=== PATIENT | female | born 1995 | race Caucasian/White ===

== ENCOUNTER 2017-03-28 14:46 | Inpatient (IN) | payer BC, OTHER ==
[~2017-03-28] VITALS: Ht 177.8 cm; Wt 65.8 kg
[2017-03-28] MEDS ORDERED: THIAMINE HCL 200 MG/2 ML VIAL IM ONE (16:15)
[2017-03-28] MEDS ORDERED: diphenhydrAMINE 50 MG CAPSULE PO PRN (16:15)
[2017-03-28] MEDS ORDERED: MIRALAX 17 GM POWD.PACK PO PRN (16:15)
[2017-03-28] MEDS ORDERED: HYDROXYZINE PAMOATE 25 MG CAPSULE PO PRN (16:15)
[2017-03-28] MEDS ORDERED: ONDANSETRON 4 MG/2 ML VIAL IM PRN (16:15)
[2017-03-28] MEDS ORDERED: MAGNESIUM HYDROXIDE 30 ML LIQUID UDC PO PRN (16:15)
[2017-03-28] MEDS ORDERED: IBUPROFEN 400 MG TABLET PO PRN (16:15)
[2017-03-28] MEDS ORDERED: MAG HYDROX/AL HYDROX/SIMETH 30 ML LIQUID UDC PO PRN (16:15)
[2017-03-28] MEDS ORDERED: LORAZEPAM 1 MG TABLET PO PRN ×2 (16:15)
[2017-03-28] MEDS ORDERED: ONDANSETRON ODT 4 MG TAB.RAPDIS SL PRN (16:15)
[2017-03-28] MEDS ORDERED: LORAZEPAM 2 MG/1 ML VIAL IM PRN (16:15)
[2017-03-28] MEDS ORDERED: DICYCLOMINE HCL 20 MG TABLET PO PRN (16:15)
[2017-03-28] MEDS ORDERED: ACETAMINOPHEN 325 MG TABLET PO PRN (16:15)
[2017-03-28] MEDS ORDERED: LOPERAMIDE HCL 2 MG CAPSULE PO PRN ×2 (16:15)
[2017-03-28] MEDS ORDERED: CLONIDINE HCL 0.1 MG TABLET PO PRN (16:15)
--- NOTE | 2017-03-28 17:30 | NUR ---
ADMISSION NOTE Patient is 21 yr old female admitted at 14:40pm for supervised benzodiazepine withdrawal. Patient is alert and oriented X4, full code, allergic to sulfa drugs, and penicillin. On fall and seizure precaution, history of seizure 2014. Denies SOB, chest pain, skin is intact. Patient's skin is intact. Gait is steady and ambulates independently. Patient is able to respond to questions, cooperative during the admission interview. Denies suicidal or homicidal ideation at this time. Initial CIWA is 4. Complained of anxiety and lower back aches. Denies tremors, sweating or any hallucinations at this time. Patient was oriented to unit, room and call lights, oriented to unit routines and activity groups, and provided with hygiene supplies. Substance use history per patient report: 1) Meth - Patient started using at age 19 Patient was using 3gram/day for 5 days. Last use was 03/25/17. 2) Xanax - Patient started using at age 17. Patient was using 2 bars/day, Last use was 03/26/17 3) Marijuana - patient started using at age 16, using 5 grams/day, last use was today prior to admission to [facility]. Rehab history: 1) [facility] (01/02/15-07/02/15) and 02/07/16-06/24/2016 Addendum: 03/29/17 at 0721 by DAVID CLARK RN Patient arrived at 4:40pm not at 14:40pm.
[2017-03-28 17:44] LABS: *URINE HCG, QUAL NEGATIVE (NEGATIVE)
[2017-03-28] MEDS ORDERED: ALBU8HFA4 (17:49)
[2017-03-28] MEDS ORDERED: SUCR1TAB PO (17:49)
[2017-03-28 17:58] LABS: *AMPHETAMINE, URINE NEGATIVE (NEGATIVE); *BARBITURATE, URINE NEGATIVE (NEGATIVE); *CANNABINOID, URINE POSITIVE (NEGATIVE); *COCCAINE, URINE NEGATIVE (NEGATIVE); *OPIATE, URINE NEGATIVE (NEGATIVE); *PHENCYCLIDINE SCREEN,URINE NEGATIVE (NEGATIVE)
[2017-03-28] MEDS: SUCRALFATE 1 GM PO SCH ×2 (18:14→21:03)
[2017-03-28 18:43] LABS: BASOPHILS % (AUTO) 0.6 % (0.0-2.0); EOSINOPHILS # (AUTO) 0.2 K/uL (0.0-0.7); LYMPHOCYTES # (AUTO) 1.8 K/UL (0.8-4.8); LYMPHOCYTES % (AUTO) 24.4 % (20.5-74.5); MEAN CORPUSCULAR HEMOGLOBIN 30.9 UUG (27.0-31.0); MEAN CORPUSCULAR HGB CONC 34 g/dL (32.0-37.0); MEAN CORPUSCULAR VOLUME 90.1 FL (81.0-99.0); MONOCYTES # (AUTO) 0.6 K/UL (0.1-1.30); MONOCYTES % (AUTO) 8.2 % (0-11); NEUTROPHILS # (AUTO) 4.7 K/UL (1.8-8.9); NEUTROPHILS % (AUTO) 63.8 % (31.5-64.5); PLATELET COUNT (AUTO) 159 K/UL (150-450); RED BLOOD CELL COUNT(AUTO) 4.21 MIL/UL (4.2-5.4); RED CELL DISTRIBUTION WIDTH 12.5 % (11.5-14.5); WHITE BLOOD COUNT (AUTO) 7.3 K/UL (4.0-11.2)
[2017-03-28 18:50] LABS: ETHANOL < 3 MG/DL (0-0)
[2017-03-28 18:51] LABS: ALANINE AMINOTRANSFERASE 15 U/L (14-59); ALBUMIN 3.7 g/dL (3.4-5.0); ALKALINE PHOSPHATASE 53 U/L (50-136); AMYLASE 73 U/L (25-115); ASPARTATE AMINOTRANSFERASE 14 U/L (15-37); BILIRUBIN,TOTAL 0.2 mg/dL (0.2-1.0); CALCIUM 8.7 mg/dL (8.5-10.1); CARBON DIOXIDE 30 mmol/L (21-32); CHLORIDE 105 mmol/L (98-107); CREATININE 0.9 mg/dL (0.6-1.3); GFR 80 mL/min (>60); GLUCOSE 95 mg/dL (74-106); LIPASE 206 U/L (73-393); POTASSIUM 4.2 mmol/L (3.5-5.1); SODIUM SERUM 142 mmol/L (136-145); TOTAL PROTEIN, SERUM 6.6 g/dL (6.4-8.2); UREA NITROGEN, BLOOD 9 mg/dL (7-18)
[2017-03-28 19:00] LABS: THYROID STIMULATING HORMONE 0.086 mIU/mL (0.358-3.740)
[2017-03-28 19:14] LABS: HIV-1 p24 ANTIGEN NON REACTIVE (NONREACTIVE); HIV-1/2 ANTIBODY NON REACTIVE (NONREACTIVE)
[2017-03-28 20:00] VITALS: BP 82/43
--- NOTE | 2017-03-28 20:00 | NUR ---
Start of Shift Note: Report received from day shift nurse. Pt is a 21 yo female admitted for evaluation of medically-supervised withdrawal from benzodiazepines and methamphetamine. Pt reports one year of sobriety and relapsing on 03/09/17 and then taking 2mg+ Xanax intermittently and using 3gm methamphetamine daily for 2 days last week. Pt also reports daily use of marijuana. Last day shift CIWA=4. Pt is on a regular diet and reports allergy to sulfa and PCN. Pt reports med hx: asthma, peptic ulcer disease, PTSD, depression, seizure (2014). Pt received in room, and reports severe fatigue and back pain. Bed is in low position and locked, side rails up x2, call light within reach. Will continue to monitor.
[2017-03-29] VITALS: BP 104/61
[2017-03-29 04:00] VITALS: BP 98/52
--- NOTE | 2017-03-29 04:00 | NUR ---
CIWA Deferred: Ordered 04:00 CIWA assessment is deferred for sleep. V/S stable. All safety precautions are in place. Will continue to monitor. Addendum: 03/29/17 at 0411 by PAMELLA VAUGHAN RN Amended: Links added.
--- NOTE | 2017-03-29 07:02 | NUR ---
End of Shift Note: Pt is a 21 yo female admitted to [facility] on 03/28/17 for evaluation of medically-supervised withdrawal from benzodiazepines and methamphetamine. Pt reports med hx: asthma, peptic ulcer disease, PTSD, depression, seizure (2014). Pt is on a regular diet. Pt reports allergy to sulfa and PCN. Pt reports being sober for one year and relapsing on 03/09/17 and then taking 2mg+ Xanax intermittently and using 3gm methamphetamine daily for 2 days last week. Pt also reports daily use of marijuana. Last CIWA=5 at 00:00 and no PRN medications were necessary this shift. V/S stable throughout shift, with decreased BP of 82/43 at 20:00 and 98/52 at 04:00, and decreased HR of 52 at 04:00. Total fluid intake this shift: 400 ml; output: urine x 1 and BM x 0. Pt is currently in bed and slept 9 hours this shift. Pt endorsed to day shift nurse.
[2017-03-29 08:00] VITALS: BP 100/41
[2017-03-29] MEDS: MULTIVITAMINS,THERAPEUTIC TABLET PO SCH (08:29)
[2017-03-29] MEDS: FOLIC ACID 1 MG TABLET PO SCH (08:29)
[2017-03-29] MEDS: SUCRALFATE 1 GM PO SCH ×4 (08:29→20:54)
[2017-03-29] MEDS: THIAMINE HCL 100 MG TABLET PO SCH (08:29)
[2017-03-29] MEDS ORDERED: TUBERCULIN,PURIF.PROT.DERIV. 5 TU/0.1 ML TEST ID ONE (09:00)
--- NOTE | 2017-03-29 09:17 | NUR ---
START OF SHIFT Received report from senior financial reporting analyst nurse. Received patient laying in bed. Patient is 21 year old female admitted for medically supervised withdrawal from benzodiazepine. Patient is full code, allergic to sulfa drugs, and penicillin. On fall and seizure precautions, with history of seizure in 2014. Denies SOB, chest pain. Patient's skin is intact. Gait is steady and ambulates independently. On assessment this AM: CIWA: 3. Patient c/o of mild nausea. Denies SOB, chest pain, tremors, sweating, anxiety or any hallucinations at this time. Recent VS: 100/41, HR 61, R16, T98.1, 0/10 and 98% 02 sat room air. Med compliant. Patient encouraged t drink po fluids and eat her breakfast. Patient appears sleepy but arousable and responds to instructions. Patient reports feeling too tired and just wants to go to sleep. Med compliant, TB skin test performed on LFA, no PRN given at this time. Patient was encouraged to attend group meetings today. Will continue to monitor patient.
--- NOTE | 2017-03-29 11:19 | NUR ---
PRN ONDANSETRON ODT Patient complained of nausea but no vomiting. PRN ondansetron ODT given. Will continue to monitor patient.
[2017-03-29 12:00] VITALS: BP 107/69
--- NOTE | 2017-03-29 12:19 | NUR ---
REASSESSMENT (ONDANSETRON ODT) Patient reports nausea has resolved. PRN ondansetron effective.
[2017-03-29] MEDS ORDERED: PATIENT MAY USE OWN MED- MD OK INH PRN (13:15)
[2017-03-29 16:00] VITALS: BP 113/71
[2017-03-29 17:02] LABS: *AMPHETAMINE, URINE NEGATIVE (NEGATIVE); *BARBITURATE, URINE NEGATIVE (NEGATIVE); *CANNABINOID, URINE POSITIVE (NEGATIVE); *COCCAINE, URINE NEGATIVE (NEGATIVE); *OPIATE, URINE NEGATIVE (NEGATIVE); *PHENCYCLIDINE SCREEN,URINE NEGATIVE (NEGATIVE)
--- NOTE | 2017-03-29 17:45 | NUR ---
MD COMMUNICATION NOTE Received call form Radiology MD (Dr. Haque) regarding result of patient's chest xray. Patient has 8% pneumothorax. Patient's primary MD was immediately notified by charge nurse. Patient denies any SOB, vital signs: BP 113/71, HR 64, R16, T98.5, 98% RA.
--- NOTE | 2017-03-29 18:35 | NUR ---
END OF SHIFT Patient is 21 year old female admitted for medically supervised withdrawal from benzodiazepine. Patient is full code, allergic to sulfa drugs, and penicillin. On fall and seizure precautions, with history of seizure in 2015. Vitals WNL. Denies SOB, chest pain. Patient's skin is intact. Gait is steady and ambulates independently. Most recent assessment: CIWA: 2 (pt. reports anxiety; however refuses any prn at this time). Patient has been sleeping with eyes closed for the most part of the shift. Patient has poor appetite, complained of nausea, PRN ondasentron given which was effective but patient only consumed yougart at lunch time. Encouraged to hydrate with po fluids, drinks and snacks were made available at bedside. Requested for soups, broth and yougart from [employer] for dinner per patient's request. Patient remains asleep with eyes closed and has not touched her dinner. Pending discharge tomorrow, urine sample sent to lab, chest x-ray done, MD notified for result, BM X2. All needs met. 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 Addendum: 03/29/17 at 1923 by DAVID CLARK RN Patient was started on 02 therapy via nasal cannula at 10L as ordered.
[2017-03-29 20:00] VITALS: BP 98/75
--- NOTE | 2017-03-29 20:00 | NUR ---
Start of Shift Note: Report received from day shift nurse. Pt is a 21 yo female admitted on 03/28/17 for evaluation of medically-supervised withdrawal from benzodiazepines and methamphetamine. Pt reports one year of sobriety and relapsing on 03/09/17 and then taking 2+mg Xanax intermittently and using 3gm methamphetamine daily for 2 days last week. Pt also reports daily use of marijuana. Last day shift CIWA=2. Pt is to discharge tomorrow. New CXR results with pneumothorax, o2 ordered at 2L via NC. Pt is on a regular diet and reports allergy to sulfa and PCN. Pt reports med hx: asthma, peptic ulcer disease, PTSD, depression, seizure (2015). Pt received in room, and reports anxiety, agitation, and fatigue. Bed is in low position and locked, side rails up x2, call light within reach. Will continue to monitor.
[2017-03-30] VITALS: BP 118/62
--- NOTE | 2017-03-30 | NUR ---
CIWA Deferred: Ordered 00:00 CIWA assessment is deferred for sleep. V/S stable. All safety precautions are in place. Will continue to monitor.
[2017-03-30 04:00] VITALS: BP 92/61
--- NOTE | 2017-03-30 04:00 | NUR ---
CIWA Deferred: Ordered 04:00 CIWA assessment is deferred for sleep. V/S stable. All safety precautions are in place. Will continue to monitor. Addendum: 03/30/17 at 0423 by PAMELLA VAUGHAN RN Amended: Links added.
--- NOTE | 2017-03-30 07:00 | NUR ---
End of Shift Note: Pt is a 21 yo female admitted to [facility] on 03/28/17 for evaluation of medically-supervised withdrawal from benzodiazepines and methamphetamine. Pt reports med hx: asthma, peptic ulcer disease, PTSD, depression, seizure (2014). Pt reports allergy to sulfa and PCN. Pt is on a regular diet. Pt reports being sober for one year, relapsing three weeks ago, and then taking 2mg Xanax intermittently and using 3gm methamphetamine for 2 days last week. Pt also reports daily use of marijuana. Last CIWA=7 at 20:00 and no PRN medications were given this shift. Pt is on 10L O2 via NC for 8% left apical pneumothorax. Pt reports anxiety and noted with agitation, but refuses medication. V/S stable throughout shift. Pt is to discharge today. Total fluid intake this shift: 1595 ml; output: urine x 4 and BM x 1. Pt is currently in bed and slept 5 hours this shift. Pt endorsed to day shift nurse.
[2017-03-30 08:00] VITALS: BP 107/61
--- NOTE | 2017-03-30 08:10 | NUR ---
START OF SHIFT: RECEIVED PT A/O X 4. SHE PRESENTS WITH ANGRY MOOD AND CONGRUENT AFFECT. SHE EXPRESSED IRRITATION ABOUT COMING TO DETOX BEFORE GOING TO RESIDENTIAL TREATMENT. SHE STATES SHE JUST WANTS TO GO TO TREATMENT ALREADY. OFFERED SUPPORT. DISCHARGE PLANNING IN PROGRESS. WILL CONTINUE TO PROVIDE SAFE AND SUPPORTIVE ENVIRONMENT.
[2017-03-30] MEDS: MULTIVITAMINS,THERAPEUTIC TABLET PO SCH (08:29)
[2017-03-30] MEDS: FOLIC ACID 1 MG TABLET PO SCH (08:29)
[2017-03-30] MEDS: THIAMINE HCL 100 MG TABLET PO SCH (08:29)
[2017-03-30] MEDS: SUCRALFATE 1 GM PO SCH (08:30)
--- NOTE | 2017-03-30 09:40 | NUR ---
DISCHARGE: PT IS A/O X 4. SHE DENIES S/I AND H/I. PT STATES SHE IS READY TO MOVE FORWARD WITH TREATMENT. BELONGINGS RETURNED. EDUCATED PT ON DISCHARGE INSTRUCTIONS AND MEDICATION. PT EXPRESSED VERBAL UNDERSTANDING OF EDUCATION. PT WAS ESCORTED BY [facility] TO [facility] WHERE SHE WAS TRANSPORTED BY [employer] AT 0935 TO MORNING SIDE RECOVERY.
[2017-03-30 13:09] LABS: HCV AB <0.1 s/co ratio (0.0-0.9); HEPATITIS B CORE AB, IgM Negative (Negative); HEPATITIS B SURFACE AG Negative (Negative)
== END 2017-03-30 09:35 | disposition home or self-care (01) | DRG 895 ==
LOC: SRC 15:53
PROVIDERS: ADMIT Internal Medicine; ATTEND Internal Medicine
PROC: HZ2ZZZZ Detoxification Services for Substance Abuse Treatment (ICD-10-PCS; principal; 2017-03-28)
PROC: HZ31ZZZ Individual Counseling for Substance Abuse Treatment, Behavioral (ICD-10-PCS; 2017-03-29)
DX: F13.10 Sedative, hypnotic or anxiolytic abuse, uncomplicated (principal); F15.20 Other stimulant dependence, uncomplicated; J93.9 Pneumothorax, unspecified; F43.10 Post-traumatic stress disorder, unspecified; J45.20 Mild intermittent asthma, uncomplicated; K27.7 Chronic peptic ulcer, site unspecified, without hemorrhage or perforation; Z81.8 Family history of other mental and behavioral disorders; Z81.4 Family history of other substance abuse and dependence; Z80.9 Family history of malignant neoplasm, unspecified; F32.9 Major depressive disorder, single episode, unspecified; F17.210 Nicotine dependence, cigarettes, uncomplicated; F12.90 Cannabis use, unspecified, uncomplicated; F06.4 Anxiety disorder due to known physiological condition; A60.00 Herpesviral infection of urogenital system, unspecified; E07.81 Sick-euthyroid syndrome; E05.80 Other thyrotoxicosis without thyrotoxic crisis or storm
CPT/HCPCS: 36415; 71010; 80307; 80346; 80349; 83690; 83735; 84443; 84703; 85025; 86580; 86592; 86705; 86803; 87340; 87806; A4663; G6040-TC; Q0162